=== PATIENT | male | born 1955 | race Caucasian/White ===

== ENCOUNTER 2017-02-01 21:53 | Observation (INO) ==
[2017-02-01] MEDS ORDERED: MORPHINE SULFATE 4 MG SYRINGE IVP ONE (22:10)
[2017-02-01] MEDS ORDERED: SALINE FLUSH 10ml SYRINGE IVF PRN (22:10)
--- NOTE | 2017-02-01 22:14 | Emergency Department Report ---
Abdominal Pain HPI - General Chief Complaint: Abdominal Pain Stated Complaint: rt side abd pain Time Seen by Provider: 02/01/17 21:57 Source: patient Mode of arrival: ambulatory Limitations: no limitations - History of Present Illness HPI narrative: He had onset of RLQ abdominal pain this morning. Pain is constant but gets worse at times. He has had some nausea today but had been eating and drinking well. Denies any fever or chills. He has had a BM this morning. Denies any urinary symptoms. Has never had pain like this in the past. Pain is worse with movement. MD complaint: abdominal pain Onset (ago): hour(s) Consistency: constant Location: RLQ Severity: moderate Severity scale (1-10): 3 Quality: sharp Radiation: none Migration to: no migration Relieving factors: nothing Exacerbating factors: movement Associated symptoms: nausea - Related Data Home Medications Medication Instructions Recorded Confirmed Albuterol Sulfate [Proair Hfa] 1 puff INH Q4H PRN 01/13/17 02/01/17 Amlodipine [Norvasc] 2.5 mg PO DAILY 01/13/17 02/01/17 Aspirin *EC* [Ecotrin] 325 mg PO DAILY 01/13/17 02/01/17 Budesonide/Formoterol 160/4.5 1 puff INH BID PRN 01/13/17 02/01/17 [Symbicort Inhaler] Ipratropium/Albuterol [Combivent 1 puff INH BID PRN 01/13/17 02/01/17 Respimat Inhaler] Isosorbide Mononitrate ER [Imdur] 120 mg PO BID 01/13/17 02/01/17 Meloxicam 15 mg PO DAILY 01/13/17 02/01/17 Naloxone HCl [Evzio] 0.4 mg IM PRN PRN 01/13/17 02/01/17 Omeprazole 40 mg PO BID 01/13/17 02/01/17 Roflumilast [Daliresp] 500 mcg PO DAILY 01/13/17 02/01/17 Verapamil HCl [Verapamil ER Pm] 300 mg PO DAILY 01/13/17 02/01/17 Previous Rx's Medication Instructions Recorded Metoclopramide HCl [Reglan] 10 mg PO QID PRN #30 tablet 02/01/17 Allergies Allergy/AdvReac Type Severity Reaction Status Date / Time aspirin Allergy Verified 02/01/17 22:09 bee pollen Allergy Respiratory Verified 02/01/17 22:09 Depression haloperidol [From Haldol] Allergy Behavior Verified 02/01/17 22:09 Disturbance propoxyphene [From Darvon] Allergy Verified 02/01/17 22:09 Sulfa (Sulfonamide Allergy Verified 02/01/17 22:09 Antibiotics) Tetanus Vaccines and Toxoid Allergy Rash Verified 02/01/17 22:09 Review of Systems Constitutional: Denies: fever, chills, weakness ENT: Denies: ear pain, throat pain, congestion Cardiovascular: Denies: chest pain, palpitations, dyspnea on exertion, edema Respiratory: Denies: cough, dyspnea, wheezes Gastrointestinal: Reports: abdominal pain, nausea. Denies: vomiting, diarrhea, constipation Genitourinary: Denies: urgency, dysuria, frequency Integumentary: Denies: rash Neurological: Denies: headache, weakness, numbness, paresthesias PFSH Patient Stated Medical History Cerebrovascular Accident Yes Migraine Yes Hearing Loss Yes Hypertension Yes Myocardial Infarction Yes: 4 Asthma Yes Bronchitis Yes Chronic Obstructive Pulmonary Yes Disease (COPD) Gastroesophageal Reflux Yes Disease Osteoarthritis Yes Other Musculoskeletal Yes Substance Use Disorder Yes: 40 years ago Surgical History: Surgical repair fractures ribs and hand - Social History Smoking status: Current every day smoker Physical Exam - Limitations Limitations: no limitations - General General appearance: alert, in no apparent distress - Normal Exams: Neck:: Full range of motion, without adenopathy, JVD, bruits or thyromegaly Chest/Respirations:: Clear all moreira, with good airflow, and symmetry bilaterally Cardiovascular:: Regular rate and rhythm, without murmur or gallop, Pulses 2+ all extremities, capillary refill, <2 seconds all extremities Abdomen:: Bowel sounds positive, non-distended, no hepatosplenomegaly, masses or bruits noted Neurological:: Patient is alert, and oriented Psychiatric:: Patient exhibits, appropriate attention, emotion and affect - Abdominal Exam Abdominal exam: Present: soft, tenderness (TTP in the RUQ>RLQ with moderate guarding in the RUQ), guarding, normal bowel sounds. Absent: distention, rebound Course Vital Signs Temperature 98.5 F 02/01/17 22:02 Pulse Rate 98 02/01/17 22:02 Respiratory Rate 18 02/01/17 22:02 Blood Pressure 138/72 02/01/17 22:02 Pulse Oximetry 95 02/01/17 22:02 Temperature 98.5 F 02/01/17 22:02 Pulse Rate 98 02/01/17 22:02 Respiratory Rate 18 02/01/17 22:02 Blood Pressure 138/72 02/01/17 22:02 Pulse Oximetry 95 02/01/17 22:02 Abdominal Pain - [facility] Narrative Medical decision making narrative: CT scan does show an appendicolith and border line enlarged appendix. Did reevaluate the patient. 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 Did discuss this with Dr Wang. He is agreeable to observation admission and reexamine in the morning. Patient is agreeable to this as well. - Differential Diagnosis Differential diagnosis: Likely: abdominal pain, acute appendicitis, calculus of kidney, diverticulitis, gastroenteritis, other (UTI), small bowel obstruction - Lab Data Attestation: I reviewed the patient's lab results. Result diagrams: 02/01/17 22:20 02/01/17 22:20 - Radiology Data Attestation: I reviewed the patient's radiology results. Ct abdomen/pelvis: Borderline dilated appendix containing an appendicolith. Correlate with clinical symptoms, appendicitis not excluded. Disposition Clinical Impression: Right lower quadrant abdominal pain Disposition: 02 To [facility] Condition: Stable Time of Disposition: 00:17 - Seen By: midlevel
[2017-02-01] MEDS ORDERED: NS 100 ML ONE (23:00)
[2017-02-01] MEDS ORDERED: IOHEXOL 300mg/ml 100ml INJECTION ONE (23:00)
[2017-02-01] MEDS ORDERED: SALINE FLUSH 10ml SYRINGE ONE (23:00)
[2017-02-02] MEDS ORDERED: ERTAPENEM 1 G in NS 100 ML IV ONE (00:20)
[2017-02-02] MEDS ORDERED: ALBUTEROL/IPRATROPIUM 2.5mg-0.5mg/3ml NEB ORAL INH PRN (00:49)
[2017-02-02] MEDS ORDERED: MORPHINE SULFATE 4 MG SYRINGE IVP PRN (00:49)
[2017-02-02] MEDS ORDERED: ONDANSETRON 4 MG/2 ML INJECTION IVP PRN (00:49)
[2017-02-02] MEDS ORDERED: INHALER ASSIST DEVICE (Optichamber) MC ONE (01:00)
[2017-02-02 01:13] VITALS: BMI 26.7
[2017-02-02] MEDS: NS 1,000 ML IV SCH ×2 (01:20→11:57)
[2017-02-02 01:35] VITALS: RESP 18
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
[2017-02-02] MEDS: ISOSORBIDE MONONITRATE ER 60 MG TABLET PO SCH ×2 (08:29→14:52)
[2017-02-02] MEDS ORDERED: ROFLUMILAST 500 MCG TABLET PO SCH (09:00)
[2017-02-02] MEDS ORDERED: AMLODIPINE 2.5 MG TABLET PO SCH (09:00)
[2017-02-02] MEDS ORDERED: Verapamil SR 120 MG TABLET (12Hr) PO SCH (09:00)
--- NOTE | 2017-02-02 09:19 | Ultrasound Report ---
Indication: RUQ painb PROCEDURE: US gall bladder: Encounter: Initial Comparison: Abdominal CT of the previous day Technique: Grayscale and color Doppler sonographic imaging of the right upper quadrant of the abdomen was performed. Findings: Hepatic parenchyma is homogeneous without evidence for focal mass. The gallbladder is normal. There is no wall thickening, pericholecystic fluid, sonographic Robert's sign or cholelithiasis. Both the intra and extrahepatic biliary system are of normal caliber with the common duct measuring 4 mm in dimension. The pancreas was not well visualized. The right kidney is present without collecting system dilatation. The right kidney measures 11.0 cm in length. Impression: Normal sonographic appearance of the gallbladder and right upper quadrant of the abdomen. .
--- NOTE | 2017-02-02 09:23 | CT Scan Report ---
EXAM: CT abdomen pelvis w con DATE: 02/01/2017 12:00 AM INDICATION: abdominal pain COMPARISON: Subsequent gallbladder ultrasound of the next day TECHNIQUE: CT of the abdomen and pelvis with IV contrast. The patient received 100 mL of Omnipaque 300 without complication. Coronal and sagittal reformatted images were performed. The current CT scan was performed using radiation dose-reduction techniques. FINDINGS: Lower Chest: The visualized portions of the lower lungs are well aerated. No focal airspace disease. The heart is normal in size without pericardial effusion. Abdomen: No intraperitoneal free air. No intra-abdominal free fluid or fluid collections. No lymphadenopathy. Liver: The liver enhances homogeneously without focal masses. Gallbladder and biliary: The gallbladder appears normal. No biliary ductal dilatation. Spleen: The spleen appears normal. Pancreas: The pancreas demonstrates homogeneous attenuation. Adrenal glands: The adrenal glands are normal in size and attenuation. Kidneys/ureters: The kidneys appear normal. The ureters are normal in course and caliber. GI tract: The stomach, small bowel, and colon appear grossly normal. The appendix contains a small 2 mm appendicolith and is mildly dilated at 8 mm (upper limits of normal 6 mm) with suggestion of mildly prominent wall enhancement and trace surrounding fatty stranding. Vascular structures: The aorta is normal in course and caliber with mild aortoiliac atherosclerotic calcifications noted. The mesenteric arterial and venous structures appear patent. Pelvis: No pelvic free fluid. No pelvic lymphadenopathy. Bladder: The bladder appears normal. Genital system: The prostate and seminal vesicles appear grossly normal. Skeletal structures and soft tissues: No acute osseous or soft tissue abnormality identified. Degenerative spondylosis of the visualized spine, with disc disease most pronounced at L4-L5 and L5-S1. IMPRESSION: The appendix contains a small 2 mm appendicolith and is mildly dilated at 8 mm (upper limits of normal 6 mm) with suggestion of mildly prominent wall enhancement and trace surrounding fatty stranding suspicious for early acute appendicitis. The above report concurs with the preliminary report provided by virtual radiologic at 11:56 PM. .
--- NOTE | 2017-02-02 09:32 | XRay Report ---
Indication: possible pneumonia Procedure: XR chest 2V: Encounter: Initial Comparison: 01/13/2017 Technique: PA and lateral radiographs of the chest were obtained. Findings: Lungs and airways: Normal lung volumes. No focal airspace consolidation. Normal pulmonary vasculature. Pleura: No pleural effusion or pneumothorax. Heart and mediastinum: Aortic atherosclerosis. The cardiomediastinal silhouette and great vessels are otherwise within normal limits. Osseous structures and soft tissues: No acute osseous abnormality is seen. Unchanged lower thoracic wedge compression deformity. Impression: No focal airspace consolidation to suggest pneumonia. .
--- NOTE | 2017-02-02 10:06 | History and Physical ---
FINDINGS Mr. Zheng is a 61-year-old gentleman I was asked to see this morning through the emergency room as a result of his history and physical findings of abdominal pain in conjunction with a "borderline" CT scan. Upon questioning the patient he states that he has been "hurting for about 20 years." He states that the pain he was experiencing yesterday is about the same type of pain that he has been experiencing on and off for 20 years. He states, however, it is "slightly different." When questioned where his pain was located he pointed to the right upper quadrant and to the right of the umbilicus. The patient describes the pain as constant in nature. He denies any aggravating symptomatology such as ambulation or oral intake/eating. Denies any radiating features of this right upper quadrant/right mid abdominal pain. He denies any fever or chills. He states that the emergency room told him that he had a "slight fever last night." I did notice that during the interview process he was coughing quite a bit. The patient informs me he was diagnosed with bronchial pneumonia a couple of weeks ago through our ER facility and was placed on antibiotics. His primary care physician is in [place], [place]. PAST MEDICAL HISTORY Performed by my nurse practitioner, Rasheed Aguilar. PAST SURGICAL HISTORY Performed by my nurse practitioner, Rasheed Aguilar. MEDICATIONS Performed by my nurse practitioner, Rasheed Aguilar. ALLERGIES Performed by my nurse practitioner, Rasheed Aguilar. SOCIAL HISTORY Performed by my nurse practitioner, Rasheed Aguilar. FAMILY HISTORY Performed by my nurse practitioner, Rasheed Aguilar. REVIEW OF SYSTEMS Performed by my nurse practitioner, Rasheed Aguilar. PHYSICAL EXAMINATION Mr. Zheng is a 61-year-old gentleman who this morning did not appear to be in acute distress. VITALS: Afebrile. Normotensive. Current vitals include temperature 97.1, pulse 86, respirations 18, blood pressure 125/67, SaO2 92% on room air. HEENT: Normocephalic. Pupils are equal, round and reactive to light and accommodation. CHEST: Auscultation of the chest reveals coarse breath sounds bilaterally. HEART: Regular rate rhythm. ABDOMEN: Visualization of the abdomen does reveal it to be slightly distended in nature. Palpation of the abdomen reveals it to be soft with only minimal tenderness being noted within the right midabdomen and right subcostal region. It does appear that the majority of his discomfort is right subcostal in nature. With deep palpation in the right subcostal region, he does have a component of some voluntary guarding. No evidence for involuntary guarding or rebound. I did not appreciate any evidence for hepatomegaly or other abnormal masses. The patient did have a slight positive Robert sign, although this was subjective. EXTREMITIES: Without clubbing, cyanosis, or edema. NEURO: Cranial nerves II-XII grossly intact. Patient is without focal motor or sensory deficits. LABORATORY/RADIOGRAPH EVALUATION The patient had a CBC through the ER last evening. His white count was 11.7. Hemoglobin was 12.0. CMP was obtained and found to be essentially within normal limits. UA was obtained and found to be negative. A CT scan was obtained. The patient had a considerable amount of stool burden in his ascending colon. There was a component of some dilatation of the colon and small bowel. One can see a small fecalith within the appendix. There were no periappendiceal changes. There is one "slice" on the CT scan on which I feel perhaps there could be a stone within the neck of the gallbladder, although this is somewhat subjective. Final impression from radiology was that there was a borderline dilated appendix containing an appendicolith. ASSESSMENT A 61-year-old gentleman with physical findings of right mid and right upper quadrant abdominal pain. Patient without physical findings to suggest appendicitis. PLAN Given the fact that his pain seems to be mostly right subcostal in nature, it would be my recommendation to go ahead and obtain a gallbladder sonogram this morning. If the sonogram is negative, I would recommend giving the patient some cathartics. He does have a considerable amount of stool burden involving his ascending colon and hepatic flexure region was also corresponds with the site of his abdominal discomfort. At this point in time the patient does not have an acute surgical abdomen. Given his history for pneumonia, will also obtain a chest x-ray for further evaluation. Will continue to follow the patient closely. JOSE
[2017-02-02] MEDS ORDERED: Bisacodyl EC TAB 5 MG TABLET PO ONE (10:22)
[2017-02-02] MEDS ORDERED: SENNA LIQUID (X-PREP) 74 ML PO ONE (10:22)
[2017-02-02] MEDS ORDERED: MEPERIDINE 100 MG/ML INJECTION IVP ONE (11:23)
--- NOTE | 2017-02-02 12:50 | Discharge Instructions ---
Discharge Plan - Med Rec/Dispo Additional Instructions: Follow up with Felipe on an as needed basis, either in the office, or return to ED if concerns arise on the weekend. Miralax daily unless more than 2 BM's daily, or if stools loose/diarrhea. Then stop for 3-5 days. Resume if no BM for 2 days, may use every other day or as needed. Prescriptions: New Metoclopramide HCl [Reglan] 10 mg PO QID PRN #30 tablet PRN Reason: n/v/cramps Continue Meloxicam 15 mg PO DAILY Aspirin *EC* [Ecotrin] 325 mg PO DAILY Roflumilast [Daliresp] 500 mcg PO DAILY Ipratropium/Albuterol [Combivent Respimat Inhaler] 1 puff INH BID PRN PRN Reason: Prn Orders Omeprazole 40 mg PO BID Isosorbide Mononitrate ER [Imdur] 120 mg PO BID Budesonide/Formoterol 160/4.5 [Symbicort Inhaler] 1 puff INH BID PRN PRN Reason: Prn Orders Verapamil HCl [Verapamil ER Pm] 300 mg PO DAILY Naloxone HCl [Evzio] 0.4 mg IM PRN PRN PRN Reason: Prn Orders Amlodipine [Norvasc] 2.5 mg PO DAILY Albuterol Sulfate [Proair Hfa] 1 puff INH Q4H PRN PRN Reason: Prn Orders - Disposition 01 Discharged Home, Self-Care
[2017-02-02] MEDS ORDERED: POLYETHYL GLYCOL 3350 17gm PACKET PO SCH (13:00)
[2017-02-02 13:11] VITALS: PULSE 82; TEMP 96.5
[2017-02-02 16:41] VITALS: BP 107/64; O2SAT 94
--- NOTE | 2017-02-02 17:52 | Progress Note ---
DATE 02/02/2017 FINDINGS I saw Mr. Zheng on evening rounds. He states he is feeling significantly better. He states his abdominal pain has essentially resolved. He did have a large bowel movement, he states, earlier today. He states he is "ready go home. " PHYSICAL EXAM VITAL SIGNS: Afebrile, normotensive. Please refer to EMR. ABDOMEN: Soft. Tenderness is essentially resolved at this time. ASSESSMENT 61-year-old gentleman with presentation of abdominal pain that has resolved. Patient found to have considerable amount of stool burden within colon upon CT scan which may have been the underlying etiology for abdominal pain. Pain improved after use of cathartics. PLAN The patient was informed that it does not appear that he has an acute surgical process. It does not appear that he is suffering from appendicitis or gallbladder disease. His sonogram was negative. CT scan did not reveal marked periappendiceal inflammatory changes. When I did review the CT scan personally I had noted that the patient had a considerable amount of stool within his ascending colon and hepatic flexure region. Given the resolution of his pain, I do believe the patient could be discharged from the hospital this evening. I informed the patient that over the course of the next couple of days he may want to continue to use a gentle laxative such as Dulcolax tablets or Milk of Magnesia. I informed the patient that if he would have recurrence of his severe abdominal pain that he should represent to the emergency room for further evaluation. Otherwise, the patient should return to his primary care physician, Dr. Garcia in [place], [place] for his ongoing medical care. The patient is not to follow with me at this point in time unless further concerns should arise. JOSE
== END 2017-02-02 17:00 | disposition home or self-care (01) ==
LOC: ED 21:53 → SRG 21:53
PROVIDERS: ADMIT Surgery; ATTEND Surgery